=== PATIENT | female | born 1995 | race Hispanic/Latino ===

== ENCOUNTER → 2023-02-26 | Outpatient (REF) | LOC: M LAB 15:55 | PROVIDERS: ATTEND Nurse Practitioner Adult Health | DX: Z02.89 Encounter for other administrative examinations (principal) ==

== ENCOUNTER 2023-04-01 07:18 | Emergency (ER) | payer MEDICAID, SELFPAY ==
[~2023-04-01] VITALS: Ht 152.4 cm; Wt 106.6 kg
[2023-04-01 08:58] LABS: RSV AMPLIFICATION NEGATIVE (NEGATIVE)
[2023-04-01 13:22] LABS: HEMOGLOBIN 15.6 g/dl (12.0-15.5); MEAN CORPUSCULAR HEMOGLOBIN 30.6 pg (27.0-33.0); MEAN CORPUSCULAR HGB CONC 35.5 g/dl (32.0-36.5); MEAN CORPUSCULAR VOLUME 86.4 fl (80.0-96.0); PLATELET COUNT, AUTOMATED 315 10^3/uL (150-450); RED BLOOD COUNT 5.09 10^6/uL (4.00-5.40); WHITE BLOOD COUNT 9.4 10^3/uL (4.0-10.0)
[2023-04-01] MEDS ORDERED: AUGMENTIN 875 MG TAB PO ONE (13:25)
[2023-04-01 13:42] LABS: LIPASE 24 U/L (12-53)
[2023-04-01 13:44] LABS: ALBUMIN 4.2 G/DL (3.2-5.2); ALKALINE PHOSPHATASE 111 U/L (46-116); ALT/SGPT 28 U/L (7.0-40); AST/SGOT 18 U/L (<34); BILIRUBIN,DIRECT 0.2 MG/DL (<0.4); BILIRUBIN,TOTAL 0.6 MG/DL (0.3-1.2); BLOOD UREA NITROGEN 14 MG/DL (9-23); CALCIUM LEVEL 9.4 MG/DL (8.5-10.1); CARBON DIOXIDE LEVEL 30 MMOL/L (20-31); CHLORIDE LEVEL 104 MMOL/L (98-107); CREATININE FOR GFR 0.73 MG/DL (0.55-1.30); GLOMERULAR FILTRATION RATE > 60.0 (>60); GLUCOSE, FASTING 88 MG/DL (60-100); POTASSIUM SERUM 4.3 MMOL/L (3.5-5.1); SODIUM LEVEL 137 MMOL/L (136-145); TOTAL PROTEIN 7.9 G/DL (5.7-8.2)
[2023-04-01] MEDS ORDERED: AMOX875T2 PO (13:54)
[2023-04-01 13:59] VITALS: BP 129/69; TEMP 97.6; O2SAT 100
== END 2023-04-01 14:15 | disposition home or self-care (01) ==
LOC: M ED 07:18
DX: J02.0 Streptococcal pharyngitis (principal); B34.2 Coronavirus infection, unspecified; Z79.2 Long term (current) use of antibiotics; R91.1 Solitary pulmonary nodule; F10.10 Alcohol abuse, uncomplicated

== ENCOUNTER 2023-05-08 19:54 | Emergency (ER) | payer SELFPAY ==
[~2023-05-08] VITALS: Ht 152.4 cm; Wt 107.3 kg
[~2023-05-08 19:54] MED LIST: AMOX875T2 PO
[2023-05-08 19:55] VITALS: BP 119/67; TEMP 97.9; O2SAT 100
== END 2023-05-08 20:57 | disposition left against medical advice (07) ==
LOC: M ED 19:54
DX: Z53.21 Procedure and treatment not carried out due to patient leaving prior to being seen by health care provider (principal)

== ENCOUNTER 2023-07-31 16:04 | Emergency (ER) | payer OTHER, SELFPAY ==
[~2023-07-31] VITALS: Ht 165.1 cm; Wt 108.3 kg
[2023-07-31 17:55] LABS: BASO % 0.4 % (0.0-1.0); EOS # 0.4 10^3/uL (0.0-0.5); EOS % 4.1 % (0.0-3.0); HEMATOCRIT 41.6 % (36.0-47.0); HEMOGLOBIN 14.9 g/dl (12.0-15.5); LYMPH # 3.2 10^3/uL (1.5-5.0); LYMPH % 31.8 % (24.0-44.0); MEAN CORPUSCULAR HEMOGLOBIN 30.2 pg (27.0-33.0); MEAN CORPUSCULAR HGB CONC 35.8 g/dl (32.0-36.5); MEAN CORPUSCULAR VOLUME 84.4 fl (80.0-96.0); MONO # 0.7 10^3/uL (0.0-0.8); MONO % 6.6 % (2.0-8.0); NEUTROPHILS # 5.7 10^3/uL (1.5-8.5); NEUTROPHILS % 56.6 % (36.0-66.0); PLATELET COUNT, AUTOMATED 322 10^3/uL (150-450); RED BLOOD COUNT 4.93 10^6/uL (4.00-5.40)
[2023-07-31 18:20] LABS: LIPASE 28 U/L (12-53)
[2023-07-31 18:23] LABS: ALBUMIN 4.1 G/DL (3.2-5.2); ALKALINE PHOSPHATASE 103 U/L (46-116); ALT/SGPT 30 U/L (7.0-40); AST/SGOT 14 U/L (<34); BILIRUBIN,DIRECT < 0.1 MG/DL (<0.4); BILIRUBIN,TOTAL 0.3 MG/DL (0.3-1.2); BLOOD UREA NITROGEN 14 MG/DL (9-23); CALCIUM LEVEL 9.3 MG/DL (8.5-10.1); CARBON DIOXIDE LEVEL 27 MMOL/L (20-31); CHLORIDE LEVEL 104 MMOL/L (98-107); CREATININE FOR GFR 0.64 MG/DL (0.55-1.30); GLOMERULAR FILTRATION RATE > 60.0 (>60); GLUCOSE, FASTING 82 MG/DL (60-100); SODIUM LEVEL 138 MMOL/L (136-145); TOTAL PROTEIN 7.1 G/DL (5.7-8.2)
[2023-07-31] MEDS: ALBUTEROL SULFATE 2.5MG/0.5ML INH NEB SOLN NEB ONE (18:24)
[2023-07-31] MEDS ORDERED: ISOVUE-370 76% 100ML VIAL As Ordered ONE (18:30)
[2023-07-31] MEDS: KETOROLAC 30 MG/ML 1ML VIAL IV ONE (18:59)
[2023-07-31] MEDS: NS 1,000 ML IV ONE (18:59)
[2023-07-31 19:24] VITALS: BP 112/66; TEMP 97.6; O2SAT 100
[2023-07-31] MEDS ORDERED: CARA1TAB6 PO (19:35)
[2023-07-31] MEDS ORDERED: ONDA-282 PO (19:35)
[2023-07-31] MEDS ORDERED: PANT40TA29 PO (19:35)
== END 2023-07-31 19:52 | disposition home or self-care (01) ==
LOC: M ED 16:04
DX: J06.9 Acute upper respiratory infection, unspecified (principal); K29.70 Gastritis, unspecified, without bleeding; R94.31 Abnormal electrocardiogram [ECG] [EKG]; F12.10 Cannabis abuse, uncomplicated; F10.10 Alcohol abuse, uncomplicated; Z91.013 Allergy to seafood; Z79.899 Other long term (current) drug therapy
CPT/HCPCS: 71045; 74177; 80048; 80076; 83690; 84702; 85025; 87486; 87581; 87633; 87798; 87880; 93005; 94640; 94760; 96374; 99284; J1885; Q9967

== ENCOUNTER → 2023-09-03 | Outpatient (REF) | payer OTHER ==
[~2023-09-03] MED LIST changes: +CARA1TAB6 PO; +ONDA-282 PO; +PANT40TA29 PO
[2023-09-03 14:29] LABS: BASO % 0.4 % (0.0-1.0); EOS # 0.2 10^3/uL (0.0-0.5); EOS % 2.8 % (0.0-3.0); HEMATOCRIT 40.3 % (36.0-47.0); HEMOGLOBIN 14.1 g/dl (12.0-15.5); LYMPH # 2.6 10^3/uL (1.5-5.0); LYMPH % 34.2 % (24.0-44.0); MEAN CORPUSCULAR HEMOGLOBIN 30.6 pg (27.0-33.0); MEAN CORPUSCULAR VOLUME 87.4 fl (80.0-96.0); MONO # 0.6 10^3/uL (0.0-0.8); MONO % 7.6 % (2.0-8.0); NEUTROPHILS # 4.1 10^3/uL (1.5-8.5); NEUTROPHILS % 54.2 % (36.0-66.0); PLATELET COUNT, AUTOMATED 301 10^3/uL (150-450); RED BLOOD COUNT 4.61 10^6/uL (4.00-5.40); WHITE BLOOD COUNT 7.5 10^3/uL (4.0-10.0)
[2023-09-03 14:32] LABS: ALBUMIN 3.8 G/DL (3.2-5.2); ALKALINE PHOSPHATASE 112 U/L (46-116); ALT/SGPT 40 U/L (7.0-40); AST/SGOT 12 U/L (<34); BILIRUBIN,TOTAL 0.4 MG/DL (0.3-1.2); BLOOD UREA NITROGEN 12 MG/DL (9-23); CALCIUM LEVEL 9.1 MG/DL (8.5-10.1); CARBON DIOXIDE LEVEL 28 MMOL/L (20-31); CHLORIDE LEVEL 106 MMOL/L (98-107); CHOLESTEROL LEVEL 197 MG/DL (<200); CHOLESTEROL RISK RATIO 4.37 (<5); CREATININE FOR GFR 0.72 MG/DL (0.55-1.30); GLOMERULAR FILTRATION RATE > 60.0 (>60); GLUCOSE, FASTING 89 MG/DL (60-100); POTASSIUM SERUM 4.7 MMOL/L (3.5-5.1); SODIUM LEVEL 136 MMOL/L (136-145); TOTAL PROTEIN 6.6 G/DL (5.7-8.2); TRIGLYCERIDES LEVEL 115 MG/DL (<150)
[2023-09-03 14:34] LABS: TOTAL 25(OH) VITAMIN D 13.4 NG/ML (20.0-100.0)
[2023-09-03 14:35] LABS: THYROID STIMULATING HORMONE 1.112 uIU/ML (0.55-4.78)
[2023-09-03 14:47] LABS: HEMOGLOBIN A1c 4.8 % (4.0-6.0)
== END ==
LOC: M LAB REF 12:30
PROVIDERS: ATTEND Nurse Practitioner Family
DX: N92.6 Irregular menstruation, unspecified (principal); E66.9 Obesity, unspecified

== ENCOUNTER 2023-09-21 11:09 | Emergency (ER) | payer OTHER ==
[~2023-09-21] VITALS: Ht 152.4 cm; Wt 107.8 kg
[2023-09-21] MEDS ORDERED: CLAR10CA3 PO (13:43)
[2023-09-21] MEDS ORDERED: FLON1SPR NARES (13:43)
[2023-09-21] MEDS ORDERED: BENZ200C70 PO (13:45)
[2023-09-21 13:51] VITALS: BP 131/78; TEMP 96; O2SAT 98
== END 2023-09-21 13:55 | disposition home or self-care (01) ==
LOC: M ED 11:09
DX: J02.9 Acute pharyngitis, unspecified (principal); J35.1 Hypertrophy of tonsils; J30.9 Allergic rhinitis, unspecified; Z91.013 Allergy to seafood; Z79.899 Other long term (current) drug therapy

== ENCOUNTER 2023-11-22 20:12 | Emergency (ER) | payer OTHER ==
[~2023-11-22] VITALS: Ht 165.1 cm; Wt 104.2 kg
[~2023-11-22 20:12] MED LIST changes: +BENZ200C70 PO; +CLAR10CA3 PO; +FLON1SPR NARES
[2023-11-22 20:14] VITALS: BP 150/96; TEMP 99.9; O2SAT 96
== END 2023-11-22 20:24 | disposition left against medical advice (07) ==
LOC: M ED 20:12
DX: Z53.21 Procedure and treatment not carried out due to patient leaving prior to being seen by health care provider (principal)

== ENCOUNTER → 2024-01-08 | Outpatient (CLI) | payer OTHER | LOC: M PLAIMG 14:03 | PROVIDERS: ATTEND Physician Assistant | DX: R91.8 Other nonspecific abnormal finding of lung field (principal); R06.00 Dyspnea, unspecified ==

== ENCOUNTER 2024-03-24 20:03 | Emergency (ER) | payer OTHER ==
[~2024-03-24] VITALS: Ht 152.4 cm; Wt 104.3 kg
[2024-03-24 22:50] LABS: BASO # 0.1 10^3/uL (0.0-0.2); BASO % 0.4 % (0.0-1.0); EOS # 0.2 10^3/uL (0.0-0.5); EOS % 1.3 % (0.0-3.0); HEMATOCRIT 41.3 % (36.0-47.0); HEMOGLOBIN 14.4 g/dl (12.0-15.5); LYMPH # 1.8 10^3/uL (1.5-5.0); LYMPH % 13.4 % (24.0-44.0); MEAN CORPUSCULAR HGB CONC 34.9 g/dl (32.0-36.5); MONO # 0.8 10^3/uL (0.0-0.8); MONO % 5.9 % (2.0-8.0); NEUTROPHILS # 10.7 10^3/uL (1.5-8.5); NEUTROPHILS % 78.6 % (36.0-66.0); PLATELET COUNT, AUTOMATED 280 10^3/uL (150-450); WHITE BLOOD COUNT 13.6 10^3/uL (4.0-10.0)
[2024-03-24 23:03] LABS: INR 1.02; PARTIAL THROMBOPLASTIN TIME 29.7 SECONDS (24.8-34.2); PROTHROMBIN TIME 13.7 SECONDS (12.5-14.5)
[2024-03-24 23:21] LABS: ALBUMIN 4.1 G/DL (3.2-5.2); ALKALINE PHOSPHATASE 110 U/L (35-104); ALT/SGPT 23 U/L (7.0-40); AST/SGOT 18 U/L (<34); BILIRUBIN,TOTAL 0.4 MG/DL (0.3-1.2); BLOOD UREA NITROGEN 19 MG/DL (9-23); CALCIUM LEVEL 9.3 MG/DL (8.5-10.1); CARBON DIOXIDE LEVEL 26 MMOL/L (20-31); CHLORIDE LEVEL 108 MMOL/L (98-107); CREATININE FOR GFR 0.75 MG/DL (0.55-1.30); GLOMERULAR FILTRATION RATE > 60.0 (>60); GLUCOSE, FASTING 87 MG/DL (60-100); POTASSIUM SERUM 4.3 MMOL/L (3.5-5.1); SODIUM LEVEL 142 MMOL/L (136-145); TOTAL PROTEIN 7.2 G/DL (5.7-8.2)
[2024-03-24] MEDS ORDERED: AMOX875T2 PO (23:25)
[2024-03-24] MEDS ORDERED: METH-1164 PO (23:26)
[2024-03-24] MEDS ORDERED: NAPR1TAB83 PO (23:26)
[2024-03-24] MEDS: AUGMENTIN 875 MG TAB PO ONE (23:41)
[2024-03-24 23:43] VITALS: BP 133/75; TEMP 97.8; O2SAT 96
== END 2024-03-24 23:43 | disposition home or self-care (01) ==
LOC: M ED 20:03 → EDBD 20:03 → M ED 23:43
DX: S62.637B Displaced fracture of distal phalanx of left little finger, initial encounter for open fracture (principal); D64.9 Anemia, unspecified; K21.9 Gastro-esophageal reflux disease without esophagitis; F10.10 Alcohol abuse, uncomplicated; Z91.013 Allergy to seafood; Z79.2 Long term (current) use of antibiotics; Z79.899 Other long term (current) drug therapy
CPT/HCPCS: 12001; 73140; 80053; 83735; 84702; 85025; 85610; 85730; 86850; 86900; 86901; 96372; 99284; J0665

== ENCOUNTER 2025-02-15 23:51 | Emergency (ER) | payer OTHER ==
[~2025-02-15] VITALS: Ht 152.4 cm; Wt 87.4 kg
[~2025-02-15 23:51] MED LIST changes: +METH-1164 PO; +NAPR1TAB83 PO
[2025-02-16 00:05] VITALS: TEMP 97.4
[2025-02-16 00:33] LABS: URINE PREG TEST NEGATIVE (NEGATIVE)
[2025-02-16] MEDS ORDERED: AZIT-12 PO (01:34)
[2025-02-16] MEDS ORDERED: BENZ200C70 PO (01:34)
[2025-02-16 01:45] VITALS: BP 119/58; O2SAT 97
[2025-02-16] MEDS: BENZONATATE 100 MG CAPSULE PO ONE (01:45)
== END 2025-02-16 01:47 | disposition home or self-care (01) ==
LOC: EDBD 23:51 → M ED 23:51
DX: J20.9 Acute bronchitis, unspecified (principal); R91.1 Solitary pulmonary nodule; F10.10 Alcohol abuse, uncomplicated; Z91.013 Allergy to seafood; Z79.2 Long term (current) use of antibiotics; Z79.899 Other long term (current) drug therapy